=== PATIENT | female | born 1955 | race Caucasian/White ===

== ENCOUNTER → 2017-06-25 | Outpatient (CLI) | payer OTHER | END | disposition home or self-care (01) | LOC: ECHO 09:35 | DX: Z01.810 Encounter for preprocedural cardiovascular examination (principal); R94.31 Abnormal electrocardiogram [ECG] [EKG] | CPT/HCPCS: 93306 ==

== ENCOUNTER → 2018-10-29 | Outpatient (CLI) | payer OTHER ==
[~2018-10-29] MED LIST: BLAC160C PO; DULO20CA17 PO; GABA-585 PO; METH2.5T PO; METO50TA29 PO; TIZA2CAP PO; TRAM50TA PO
--- NOTE | 2018-10-30 17:06 | KCIC ---
Left hand 2 views. HISTORY: Sarcoid, D 85.9, rheumatoid arthritis, M0 6.9 2 views were taken of the left hand. There is no acute fracture. There are no erosive changes. Slight spurring at the interphalangeal joint of the thumb and the distal interphalangeal joint of the index finger. There is a small calcification at the DIP joint of the index finger from dystrophic calcification or a calcified nodule. IMPRESSION: 1. No erosive changes noted. 2. 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 Electronically signed by: Addison Alexandre MD (10/30/2018 5:02 PM) [facility]
== END | disposition home or self-care (01) ==
LOC: KCIC 10:58
PROVIDERS: ATTEND Family Medicine
DX: M19.042 Primary osteoarthritis, left hand (principal); M06.9 Rheumatoid arthritis, unspecified; D86.9 Sarcoidosis, unspecified
CPT/HCPCS: 73120